=== PATIENT | female | born 1990 | race Caucasian/White ===

== ENCOUNTER → 2016-11-27 | Outpatient (CLI) | payer BC | END | disposition home or self-care (01) | LOC: C.PAPS 16:57 | PROVIDERS: ATTEND Obstetrics & Gynecology | DX: Z01.419 Encounter for gynecological examination (general) (routine) without abnormal findings (principal) ==

== ENCOUNTER 2022-02-18 12:42 | Inpatient (IN) ==
[2022-02-18] MEDS ORDERED: OXYTOCIN 30 UNITS/500 ML BAG IV PRN ×2 (13:53→13:54)
[2022-02-18] MEDS: LACTATED RINGER'S 1,000 ML IV PRN ×3 (14:00→16:57)
--- NOTE | 2022-02-18 14:00 | Labor Progress Brief Note ---
Date of Service February 18, 2022 Subjective 31yo @ 40w2d called to report ROM at 11am. She denied ctx, VB at that time, and had good FM. She was told to report to L&D. On arrival she has begun to feel contractions every 5-6 min. She brought a plan but has already decided she definitely will want a epidural in the near future. Review of Systems All systems reviewed & are unremarkable except as noted in HPI & below Assessment & Plan (1) Normal labor: Plan: Planned for IOL tomorrow, was to get cannon tonight. Has now had SROM and onset of early labor. Agreeable to augmentation with pitocin, and will provide epidural on request. GBS neg. Earlier low-lying placenta resolved, no other complications. Admission and Anticipated Discharge Date Admission Date: February 18, 2022 Physical Exam Constitutional: WD/WN, vitals as above Eyes: PERRL, conjunctivae normal, anicteric sclerae ENMT: external ear and nose normal, oropharynx normal Neck: supple Respiratory: normal respiratory effort and able to speak in complete sentences; no respiratory distress Cardiovascular: Rate/Rhythm: regular rate and regular rhythm Gastrointestinal (Abdomen): Gravid / AGA, nontender Musculoskeletal: no cyanosis or clubbing, extremities motor strength 5/5 Skin: no rashes, warm and dry Neurologic: patellar DTR's 2+ bilat, sensation intact Psychiatric: A+Ox3, euthymic affect Genitourinary: Speculum/Bimanual Exam: no vaginal lesions, no vaginal bleeding and uterus nontender OB Exam Abdomen: + vertex, + estimated weight (7) and + regular contractions (Q6) Manual OB Exam: + cervical dilation 1 cm, + cervical effacement 90%, + station -2 and + amniotic fluid meconium and nitrazine positive OB Exam Monitor Tracing: + external FHT monitor used, + external uterine monitor used and + category I Lymphatic: no cervical or axillary lymphadenopathy Results & Data ([facility]) Vital Signs (Past 12 Hours) Vital Signs Temp Pulse Resp BP 02/18/22 12:49 98.1 F 93 H 20 137/84 Coding Level of Care Code None Diagnoses Normal labor O80; Z37.9
[2022-02-18 14:43] LABS: Hematocrit (blood only) 33.6 % (37-47); Hemoglobin 11.5 g/dL (12.0-16.0); Mean Corpuscular Hemoglobin 29.3 pg (25-34); Mean Corpuscular Hgb Conc 34.2 g/dL (32-36); Mean Corpuscular Volume 85.7 fL (80-100); Mean Platelet Volume 10.4 fL (7.4-10.4); Platelet Count 278 K/uL (130-400); RDW Coefficient of Variation 15.5 % (11.5-14.5); RDW Standard Deviation 48.7 fL (36.4-46.3); Red Blood Count 3.92 M/uL (4.2-5.4)
[2022-02-18] MEDS ORDERED: ONDANSETRON INJ 2 MG/ML 2 ML VIAL IV PRN (15:58)
[2022-02-18] MEDS ORDERED: ePHEDrine sulfate 50 MG/ML AMP IV PRN (15:58)
[2022-02-18] MEDS ORDERED: NALOXONE HCL 1 MG in SODIUM CHLORIDE 0.9% 1000ML 1,000 ML IV PRN (15:58)
[2022-02-18] MEDS ORDERED: NALOXONE HCL 0.4 MG/1 ML VIAL/CARP IV PRN (15:58)
[2022-02-18] MEDS ORDERED: diphenhydrAMINE 50 MG/ML VIAL IV PRN (15:58)
[2022-02-18] MEDS ORDERED: NALBUPHINE HCL INJ 10 MG/ML AMP IV PRN (15:58)
--- NOTE | 2022-02-18 16:08 | Anesthesiology Consultation ---
Date of Service February 18, 2022 Assessment & Plan (1) Encounter for pre-operative examination: Chart Review Chart Review: Acceptable Risk for Labor Epidural Consults Requested none ASA ASA2 Proposed Anesthesia Anesthesia Type: Labor Epidural Risk / Benefits Reviewed With: PT / POA / Parent / Guardian, Accepts Plan and Informed Consent Obtained History Height/Weight Height: 5 ft 4 in Weight: 100.335 kg Allergies Allergy/AdvReac Type Severity Reaction Status Date / Time No Known Allergies Allergy Verified 02/16/22 13:56 Medications Home Medications Medication Instructions Recorded Confirmed Last Taken prenat.vits,cristian,[id number] 1 tab PO DAILY 07/03/21 02/18/22 02/18/22 08:00 Active Medications Generic Name Dose Route Start Last Admin Trade Name Freq PRN Reason Stop Dose Admin Lactated Ringer's 1,000 mls @ 125 mls/hr 02/18/22 13:53 02/18/22 16:02 Lr IV 02/20/22 13:52 999 mls/hr .Q8H PRN Administration L&D Protocol Protocol Oxytocin 30 units in 500 mls @ 7 mls/hr 02/18/22 13:54 02/18/22 15:45 Pitocin IV 02/20/22 13:53 0.42 units/hr .Q24H PRN 7 mls/hr Labor Induction/Augmentation Titration Protocol 0.42 UNITS/HR Past Medical History Medical History No significant past medical history Varicella vaccination Exercise / Class Metabolic Activity II 4-5 Yardwork/Stairs/Walk up hill Past Family History Family History Grandmother (Maternal) Breast cancer Other Heart disease Denies family history of Ovarian cancer Colorectal cancer Past Surgical History Surgical History Hx of wisdom tooth extraction No significant past surgical history Past Anesthesia History No Hx of Anesthesia Complications and No Family Hx of Anesthesia Complications History of PONV No Hx of PONV and No Hx of Motion Sickness Social History Smoking Status: Never smoker Hx Alcohol Use: No Hx Substance Use: No substance use type: does not use Physical Exam Vital Signs Last Vital Signs Temp 97.9 F 02/18/22 14:41 Pulse 81 02/18/22 16:01 Resp 18 02/18/22 14:41 BP 123/87 02/18/22 15:58 Pulse Ox 97 02/18/22 16:01 ENMT Mouth: no dentition abnormality Thyromental Distance: > or= 3.5 Finger Breadths Mallampati Class: II Neck normal visual inspection Respiratory normal respiratory effort Auscultation: lungs clear to auscultation bilaterally Cardiovascular Rate/Rhythm: regular rate and regular rhythm Testing Laboratory Results 02/18/22 14:04
[2022-02-18] MEDS: fentaNYL 2MCG/ML ROPIVACAINE 1.25MG/ML 100 ML BAG EPI PRN ×3 (16:38→22:42)
[2022-02-18] MEDS ORDERED: ePHEDrine sulfate 50 MG/ML AMP ONE (16:49)
[2022-02-18] MEDS ORDERED: fentaNYL citrate 100 MCG/2 ML VIAL ONE ×2 (16:49→18:31)
[2022-02-18] MEDS ORDERED: fentaNYL 2MCG/ML ROPIVACAINE 1.25MG/ML 100 ML BAG EPI ONE (16:50)
[2022-02-18] MEDS ORDERED: BUPIVACAINE 0.25% 30 ML VIAL ONE ×2 (16:50→18:32)
[2022-02-18] MEDS ORDERED: SODIUM CHLORIDE 0.9% INJ 10 ML VIAL ONE (16:50)
[2022-02-18] MEDS ORDERED: Nursing to Pharmacy Communication SCH (17:30)
--- NOTE | 2022-02-18 18:03 | Labor Progress Brief Note ---
Date of Service February 18, 2022 Subjective Received epidural but not comfortable yet; new pump and epidural bag placed, and will consult anesthesia if patient comfort not achieved. Assessment & Plan (1) Normal labor: Plan: Cont curr mgmt. Admission and Anticipated Discharge Date Admission Date: February 18, 2022 Physical Exam Genitourinary: FHT Cat 1 Kunkle Q3 Cvx 3/100/-2 LOF ongoing Results & Data ([facility]) Vital Signs (Past 12 Hours) Vital Signs Temp Pulse Resp BP Pulse Ox 02/18/22 17:59 81 94 02/18/22 17:57 76 99 02/18/22 17:52 87 98 02/18/22 17:47 84 99 02/18/22 17:46 77 127/82 02/18/22 17:42 81 98 02/18/22 17:37 79 98 02/18/22 17:32 77 99 02/18/22 17:30 76 127/86 02/18/22 17:27 86 20 98 02/18/22 17:22 80 99 02/18/22 17:17 81 124/83 99 02/18/22 17:12 69 98 02/18/22 17:07 78 99 02/18/22 17:02 75 99 02/18/22 17:01 98.4 F 74 20 126/90 02/18/22 16:57 73 98 02/18/22 16:52 81 99 02/18/22 16:47 74 98 02/18/22 16:44 76 136/83 02/18/22 16:43 75 133/80 02/18/22 16:42 84 98 02/18/22 16:40 83 148/93 H 02/18/22 16:38 82 148/88 H 02/18/22 16:37 83 98 02/18/22 16:36 70 138/87 02/18/22 16:34 83 145/91 H 02/18/22 16:32 81 99 02/18/22 16:31 77 137/90 02/18/22 16:27 83 98 02/18/22 16:22 74 98 02/18/22 16:17 70 98 02/18/22 16:15 71 132/87 02/18/22 16:12 69 98 02/18/22 16:10 90 84 L 02/18/22 16:06 82 100 02/18/22 16:01 81 97 02/18/22 15:58 74 123/87 02/18/22 15:46 75 131/86 02/18/22 15:30 78 118/79 02/18/22 15:14 76 120/82 02/18/22 14:59 77 129/81 02/18/22 14:43 76 129/82 02/18/22 14:41 97.9 F 18 02/18/22 14:40 81 135/78 02/18/22 12:49 98.1 F 93 H 20 137/84 Coding Level of Care Code None Diagnoses Normal labor O80; Z37.9
--- NOTE | 2022-02-18 18:58 | Communication Note ---
Date of Service: February 18, 2022 The patient stated having increased right sided labor pains. The epidural was withdrawn 1 cm. The epidural was bolused with fentanyl 75mcg and 0.25% bupivacai ne 3 mL. The patient stated that her labor pains had improved. VSS throughout.
[2022-02-19] MEDS: LACTATED RINGER'S 1,000 ML IV PRN (00:51)
--- NOTE | 2022-02-19 02:34 | Delivery Summary ---
Vaginal Delivery Summary Date of Service February 19, 2022 Vaginal Delivery Summary DIAGNOSES: 1. Sunshine intrauterine at 40w3d gestation. 2. Spontaneous onset of labor. 3. Group B Streptococcus Neg. PROCEDURE: Spontaneous vaginal delivery and repair of second degree laceration. SURGEON: Kathy Dennis MD. INDUSTRIAL SPRAYPAINTER: None. ESTIMATED BLOOD LOSS: 500 mL. COMPLICATIONS: None. PLACENTA: Spontaneous and intact with a 3-vessel cord. DISPOSITION: Stable to labor and delivery. DESCRIPTION: The patient pushed well and brought the head to in DOA position. The infant's head was allowed to deliver with contraction force and no further active pushing, with the perineum protected during this time. There was a nuchal cord, and the was delivered through this loop. The left shoulder was anterior. The shoulders and body delivered without any difficulty, and the infant was placed on the maternal abdomen. Bulb suction was provided immediately due to thick meconium. It was vigorous and moving all extremities, and making respiratory efforts. The cord was doubly clamped by the MD and then cut by the FOB. The placenta delivered spontaneously and was noted to be intact and with a 3VC. The cervix, vagina and perineum were examined and were found to have a second-degree posterior vaginal laceration which was repaired in the usual manner with vicryl suture. The fundus was firm and lochia minimal immediately after delivery. [facility] Vaginal Delivery Charge Vaginal Delivery Codes: 81257 global code for the antepartum, delivery, and post-
[2022-02-19] MEDS ORDERED: oxyCODONE/ACETAMINOPHEN 5mg/325mg TAB PO PRN (02:57)
[2022-02-19] MEDS ORDERED: DIPHTHERIA/TETANUS/PERTUSSIS 0.5 ML SYR/VIAL IM ONE (02:57)
[2022-02-19] MEDS ORDERED: HYDROCORTISONE ACETATE 25 MG SUPP PR PRN (02:57)
[2022-02-19] MEDS ORDERED: BENZOCAINE 20% AER SPR 82.5 GM CAN EXT PRN (02:57)
[2022-02-19] MEDS ORDERED: ACETAMINOPHEN 325 MG TAB PO PRN (02:57)
[2022-02-19] MEDS ORDERED: OXYTOCIN 30 UNITS/500 ML BAG IV PRN (02:57)
--- NOTE | 2022-02-19 05:04 | Anesthesia Procedure Note ---
Date of Service February 19, 2022 Anesthesia Post Epidural Note Vital Signs Vital Signs: Temp Pulse Resp BP Pulse Ox 99.1 F 104 H 16 132/77 94 02/19/22 00:06 02/19/22 05:01 02/19/22 04:16 02/19/22 04:19 02/19/22 05:01 Pain Intensity Abdomen: Pain Intensity: 8 Bilateral Head: Pain Intensity: 3 Notes Mental Status: alert / awake / arousable and participated in evaluation Nausea / Vomiting: adequately controlled Pain: adequately controlled Airway Patency, RR, SpO2: stable & adequate BP & HR: stable & adequate Hydration State: stable & adequate Neuraxial Anesthesia: was administered and sensory block is resolving Anesthetic Complications: no major complications apparent and Pt Satisfied with anesthetic care Epidural: Removed without complications and With tip intact
[2022-02-19] MEDS: IBUPROFEN 600 MG TAB PO PRN ×4 (07:00→21:19)
[2022-02-19] MEDS: DOCUSATE SODIUM 100 MG CAP PO SCH ×2 (08:47→21:19)
[2022-02-19] MEDS: PRENATAL VITAMIN 1 TAB PO SCH (08:47)
--- NOTE | 2022-02-20 06:08 | Obstetrical Progress Note ---
Date of Service <Elijah Solis - Last Filed: 02/20/22 06:37> February 20, 2022 Assessment & Plan <Elijah Solis - Last Filed: 02/20/22 06:37> (1) Encounter for care and examination after delivery: 31 yo post day 1 from vaginal delivery, doing well. -Continue routine post care. -vital signs reviewed and WNL. (Tmax 36.8) -Blood type O+, GBS negative, Rubella Immune. -Encourage ambulation, monitor and control pain with Motrin, tylenol PRN, resume regular diet, monitor lochia. -encourage breast feeding. Breast pump [needed/already has]. -hemoglobin 11.5 -Heat + NSAIDs PRN for neck soreness, likely 2/2 labor efforts/positioning. <Cristin Stout, - Last Filed: 02/20/22 07:35> (1) Encounter for care and examination after delivery: 31 yo post day 1 from vaginal delivery, doing well. -Continue routine post care. -vital signs reviewed and WNL. (Tmax 36.8) -Blood type O+, GBS negative, Rubella Immune. -Encourage ambulation, monitor and control pain with Motrin, tylenol PRN, resume regular diet, monitor lochia. -encourage breast feeding. Breast pump [needed/already has]. -Heat + NSAIDs PRN for neck soreness, likely 2/2 labor efforts/positioning. Subjective <Elijah Solis - Last Filed: 02/20/22 06:37> Ambulation: ambulating normally Voiding: no voiding problems Passing Gas:: Yes Diet Tolerance:: regular diet Lochia:: Small Feeding Type:: breast feeding Current Pain Level(1-10): 2 Review of Systems Denies fever, chills, sweats Denies shortness of breath, difficulty breathing, chest pain, palpitations, chest pressure. Denies breast pain. Denies dysuria. Denies headache or changes in vision Neck soreness. Physical Exam <Elijah Eagleedgarkrish - Last Filed: 02/20/22 06:37> General: Alert, oriented. No acute distress. Cardiac: Regular rate and rhythm, no murmurs/rubs/gallops. Respiratory: Clear to auscultation bilaterally a/p, no wheezes/rales/rhonchi. No increased work of breathing. Symmetrical chest rise. No respiratory distress. Abdomen: Soft, nontender, nondistended. Bowel sounds present. Uterus: Uterine fundus firm, palpable 2 cm below umbilicus. Lower Extremities: No lower extremity edema or swelling. No deep calf pain. Maria T's negative bilaterally Results & Data ([facility]) <Elijah Solis DO - Last Filed: 02/20/22 06:37> Vital Signs (Past 12 Hours) Vital Signs Temp Pulse Resp BP Pulse Ox 02/20/22 05:17 36.4 C L 80 20 112/70 98 02/20/22 00:00 36.8 C 87 20 116/77 99 02/19/22 20:10 36.7 C 88 18 122/81 98 <Cristin Stout DO - Last Filed: 02/20/22 07:35> Co-Signing Physician Notes Resident Physician Supervision Note: I was present with Dr. Solis during the history and exam. I discussed the case with the resident and agree with the findings and plan as documented in the note. Any exceptions or clarifications are listed here: PPD#1 doing well, continue working with , anticipate DC home tomorrow. Documented By: Cristin Stout DO Resident Activity Tracking <Elijah Solis DO - Last Filed: 02/20/22 06:37> Resident Involvement: Resident Care Provided Care Provided: OB Delivery
[2022-02-20 06:16] LABS: Hematocrit (blood only) 29.6 % (37-47); Hemoglobin 9.9 g/dL (12.0-16.0); Mean Corpuscular Hemoglobin 28.9 pg (25-34); Mean Corpuscular Hgb Conc 33.4 g/dL (32-36); Mean Corpuscular Volume 86.3 fL (80-100); Mean Platelet Volume 9.9 fL (7.4-10.4); Platelet Count 246 K/uL (130-400); RDW Standard Deviation 50.4 fL (36.4-46.3); Red Blood Count 3.43 M/uL (4.2-5.4); White Blood Count 11.03 K/uL (4.8-10.8)
[2022-02-20] MEDS: IBUPROFEN 600 MG TAB PO PRN ×4 (07:37→23:37)
[2022-02-20] MEDS: PRENATAL VITAMIN 1 TAB PO SCH (07:38)
[2022-02-20] MEDS: DOCUSATE SODIUM 100 MG CAP PO SCH ×2 (07:38→21:46)
[2022-02-21] MEDS: IBUPROFEN 600 MG TAB PO PRN ×2 (04:11→08:23)
[2022-02-21 06:17] LABS: Hematocrit (blood only) 32.1 % (37-47); Hemoglobin 10.6 g/dL (12.0-16.0)
--- NOTE | 2022-02-21 07:39 | Obstetrical Progress Note ---
Date of Service <Elijah Solis DO - Last Filed: 02/21/22 08:39> February 21, 2022 Assessment & Plan <Elijah Solis DO - Last Filed: 02/21/22 08:39> (1) Encounter for care and examination after delivery: 31 yo post day 2 from vaginal delivery, doing well. -Continue routine post care. -vital signs reviewed and WNL. (Tmax 36.9) -Blood type O+, GBS negative, Rubella Immune -Encourage ambulation, monitor and control pain with Motrin, tylenol PRN, resume regular diet, monitor lochia. -encourage breast feeding. -hemoglobin 10.6 -Discussed discharge with patient. Patient will follow up with Dr. Dennis in 6 weeks. <Stephen Sanchez MD - Last Filed: 02/21/22 09:22> (1) Encounter for care and examination after delivery: Patient seen and evaluated and agree with above assessment and plan. Stable for discharge. Subjective <Elijah Solis DO - Last Filed: 02/21/22 08:39> Ambulation: ambulating normally Voiding: no voiding problems Passing Gas:: Yes Diet Tolerance:: regular diet Lochia:: Small Feeding Type:: breast feeding Current Pain Level(1-10): 0 Review of Systems Denies fever, chills, sweats Denies shortness of breath, difficulty breathing, chest pain, palpitations, chest pressure. Denies breast pain. Denies dysuria. Denies headache or changes in vision Physical Exam <Elijah Solis DO - Last Filed: 02/21/22 08:39> General: Alert, oriented. No acute distress. Cardiac: Regular rate and rhythm, no murmurs/rubs/gallops. Respiratory: Clear to auscultation bilaterally a/p, no wheezes/rales/rhonchi. No increased work of breathing. Symmetrical chest rise. No respiratory distress. Abdomen: Soft, nontender, nondistended. Bowel sounds present. Uterus: Uterine fundus firm, palpable 2 cm below umbilicus. Lower Extremities: No lower extremity edema or swelling. No deep calf pain. Maria T's negative bilaterally Results & Data ([facility]) <Elijah EagleedgarDO krish - Last Filed: 02/21/22 08:39> Vital Signs (Past 12 Hours) Vital Signs Temp Pulse Resp BP 02/21/22 00:20 36.5 C 85 16 119/81 Resident Activity Tracking <Elijah Solis DO - Last Filed: 02/21/22 08:39> Resident Involvement: Resident Care Provided Care Provided: OB Delivery
[2022-02-21] MEDS: DOCUSATE SODIUM 100 MG CAP PO SCH (08:11)
[2022-02-21] MEDS: PRENATAL VITAMIN 1 TAB PO SCH (08:12)
[2022-02-21] MEDS ORDERED: bisacodyL 10 MG SUPP PR STA (10:29)
== END 2022-02-21 15:30 | disposition home or self-care (01) | DRG 807 ==
LOC: OPB 12:42 → 4S1 12:43 → 4E2 02-19 06:08